=== PATIENT | female | born 1950 | race Caucasian/White ===

== ENCOUNTER 2022-04-05 12:45 | Inpatient (IN) | payer OTHER, MEDICAID ==
[~2022-04-05] VITALS: Ht 152.4 cm; Wt 59.9 kg
[2022-04-05 12:46] VITALS: BP_SYST 92
[2022-04-05 13:17] LABS: HEMATOCRIT 35.9 % (36-48); HEMOGLOBIN 12.3 g/dL (12.0-16.0); MEAN CORPUSCULAR HEMOGLOBIN 30 pg (27-31); MEAN CORPUSCULAR HGB CONC 34 % (32-36); MEAN CORPUSCULAR VOLUME 87 fL (79.0-98.0); PLATELET COUNT (AUTO) 129 K/uL (130-430); RED BLOOD CELL COUNT(AUTO) 4.14 MIL/uL (4.2-6.2); RED CELL DISTRIBUTION WIDTH 17.3 % (9.0-15.0); WHITE BLOOD COUNT (AUTO) 20.2 K/uL (4.8-10.8)
[2022-04-05 13:24] LABS: ANION GAP 7 (5-15); CALCIUM 8.3 mg/dL (8.4-11.0); CHLORIDE 93 mmol/L (98-107); CREATININE 1.24 mg/dL (0.55-1.30); GLUCOSE 189 mg/dL (70-99); POTASSIUM 3.2 mmol/L (3.5-5.1); SODIUM SERUM 127 mmol/L (136-145); UREA NITROGEN, BLOOD 19 mg/dL (8-21)
[2022-04-05 13:34] LABS: ALANINE AMINOTRANSFERASE 81 U/L (12-78); ALBUMIN 2.1 g/dL (3.4-4.8); ASPARTATE AMINOTRANSFERASE 106 U/L (10-37); TOTAL BILIRUBIN 6.5 mg/dL (0.0-1.0)
[2022-04-05 13:42] LABS: BAND % (MANUAL) 22 % (0-6); BASOPHILS % (MANUAL) 0 % (0-2); EOSINOPHILS % (MANUAL) 0 % (0-7); LYMPHOCYTES % (MANUAL) 2 % (20-46); MONOCYTES % (MANUAL) 2 % (0-11)
[2022-04-05] MEDS ORDERED: POTASSIUM CHLORIDE 20 MEQ TAB.PRT.SR PO ONE (15:45)
[2022-04-05] MEDS ORDERED: NACL 0.9% 1,000 ML IV ONE (15:45)
[2022-04-05] MEDS ORDERED: PIPERACILLIN/TAZO 3.375 GM in NS 50 ML IV ONE (15:45)
[2022-04-05] MEDS ORDERED: VANCOMYCIN HCL 1,000 MG in NS 250 ML IV ONE (16:00)
[2022-04-05] MEDS ORDERED: AZITHROMYCIN 500 MG in NS 250 ML IV ONE (16:00)
[2022-04-05] MEDS ORDERED: iohexoL 350 mgI/mL, 100 ML INFUS..BTL IV ONE (16:08)
[2022-04-05] MEDS ORDERED: AZITHROMYCIN 500 MG/VIAL (ZITHROMAX) IV ONE (16:25)
[2022-04-05] MEDS ORDERED: PIPERACILLIN/TAZOBACTAM 3.375 GM/VIAL (ZOSYN) IV ONE (16:26)
[2022-04-05] MEDS ORDERED: VANCOMYCIN HCL 1000 MG/VIAL IV ONE (16:27)
[2022-04-05] MEDS ORDERED: POTASSIUM CHLORIDE 20 MEQ TAB.PRT.SR ONE (17:55)
[2022-04-05] MEDS ORDERED: AMLO5TAB4 PO (19:28)
[2022-04-05] MEDS ORDERED: ALEN70TA27 PO (19:28)
[2022-04-05] MEDS ORDERED: RABE20TA18 PO (19:29)
[2022-04-05] MEDS ORDERED: DEPAK250 PO (19:29)
[2022-04-05] MEDS ORDERED: MEMA10TA56 PO (19:29)
[2022-04-05] MEDS ORDERED: ASPI-524 PO (19:29)
[2022-04-05] MEDS ORDERED: CELE-85 PO (19:29)
[2022-04-05] MEDS ORDERED: ATOR40TA68 PO (19:29)
[2022-04-05] MEDS ORDERED: METO-544 PO (19:29)
[2022-04-05] MEDS ORDERED: SYN50 PO (19:29)
[2022-04-05] MEDS ORDERED: CITA20TA16 PO (19:29)
[2022-04-05] MEDS ORDERED: SITA50TA3 PO (19:29)
[2022-04-05] MEDS: D5NS 1,000 ML IV SCH (20:16)
[2022-04-05] MEDS ORDERED: KETO5DRO85 EACH EYE (20:19)
[2022-04-05] MEDS ORDERED: PREDEYE1% EACH EYE (20:19)
[2022-04-05 20:51] VITALS: BP_SYST 140
[2022-04-06 00:30] VITALS: BP_SYST 132
[2022-04-06] MEDS: PIPERACILLIN/TAZO 3.375/DEX-IS 50 ML IV SCH ×5 (00:40→22:58)
[2022-04-06] MEDS: D5NS 1,000 ML IV SCH ×2 (06:46→14:01)
[2022-04-06] MEDS: LEVOTHYROXINE SODIUM 0.05 MG TABLET PO SCH (06:55)
[2022-04-06 07:13] LABS: ALANINE AMINOTRANSFERASE 100 U/L (12-78); ALBUMIN 1.8 g/dL (3.4-4.8); ANION GAP 7 (5-15); ASPARTATE AMINOTRANSFERASE 135 U/L (10-37); CALCIUM 8.1 mg/dL (8.4-11.0); CHLORIDE 97 mmol/L (98-107); CREATININE 0.92 mg/dL (0.55-1.30); GLUCOSE 275 mg/dL (70-99); POTASSIUM 3.9 mmol/L (3.5-5.1); SODIUM SERUM 130 mmol/L (136-145); TOTAL BILIRUBIN 6.2 mg/dL (0.0-1.0); UREA NITROGEN, BLOOD 14 mg/dL (8-21)
[2022-04-06 07:54] VITALS: BP_SYST 131
[2022-04-06 08:10] LABS: LIPASE 3630 U/L (73-393)
[2022-04-06 08:15] LABS: BASOPHILS % (AUTO) 0.1 % (0.0-2.0); EOSINOPHILS % (AUTO) 0.1 % (0.0-4.0); HEMATOCRIT 35.7 % (36-48); HEMOGLOBIN 12.4 g/dL (12.0-16.0); LYMPHOCYTES # (AUTO) 0.5 K/uL (1.0-5.5); LYMPHOCYTES % (AUTO) 3.5 % (20.5-51.5); MEAN CORPUSCULAR HEMOGLOBIN 31 pg (27-31); MEAN CORPUSCULAR HGB CONC 35 % (32-36); MEAN CORPUSCULAR VOLUME 89 fL (79.0-98.0); MONOCYTES # (AUTO) 0.9 K/uL (0.0-1.0); MONOCYTES % (AUTO) 6.7 % (1.7-9.3); NEUTROPHILS # (AUTO) 12.4 K/uL (1.8-7.7); NEUTROPHILS % (AUTO) 89.6 % (40.0-70.0); PLATELET COUNT (AUTO) 103 K/uL (130-430); RED BLOOD CELL COUNT(AUTO) 4.01 MIL/uL (4.2-6.2); RED CELL DISTRIBUTION WIDTH 17.7 % (9.0-15.0); WHITE BLOOD COUNT (AUTO) 13.9 K/uL (4.8-10.8)
[2022-04-06 08:33] VITALS: BP_SYST 131
[2022-04-06] MEDS: ASPIRIN 81 MG TAB.CHEW PO SCH (09:00)
[2022-04-06] MEDS: VALPROIC ACID 250 MG CAPSULE (DEPAKENE) PO SCH ×2 (09:00→21:00)
[2022-04-06] MEDS: MEMANTINE HCL 5 MG TABLET PO SCH ×2 (09:00→22:55)
[2022-04-06] MEDS: amLODIPine BESYLATE 5 MG TABLET PO SCH (09:00)
[2022-04-06] MEDS: CELECOXIB 200 MG CAPSULE PO SCH (09:00)
[2022-04-06] MEDS: CITALOPRAM HYDROBROMIDE 20 MG TABLET PO SCH (09:00)
[2022-04-06 09:24] LABS: BILIRUBIN,URINE 2+ (NEGATIVE); BLOOD, URINE 2+ (NEGATIVE); CLARITY/URINE CLEAR (CLEAR); COLOR,URINE YELLOW (YELLOW); GLUCOSE,URINE 3+ (NEGATIVE); KETONES,URINE NEGATIVE (NEGATIVE); LEUKOCYTE ESTERASE ,URINE 1+ (NEGATIVE); NITRITE, URINE NEGATIVE (NEGATIVE); PROTEIN URINE 1+ (NEGATIVE); UROBILINOGEN,URINE 0.2 (0.2-1.0)
[2022-04-06 09:42] LABS: BACTERIA,URINE FEW /HPF (None Seen); MUCUS,URINE 1+ /LPF (None Seen); WBC,URINE 20-50 /HPF (0-3)
[2022-04-06] MEDS ORDERED: PANTOPRAZOLE SODIUM 40 MG TAB PO ONE (11:00)
[2022-04-06 12:00] VITALS: BP_SYST 130
[2022-04-06] MEDS: prednisoLONE 1% OPHTHALMIC SUSPN 5 ML OP SCH ×4 (13:59→21:00)
[2022-04-06] MEDS: EYE OP SCH ×3 (14:31→21:00)
[2022-04-06] MEDS: KETOROLAC TROMETHAMINE 0.5% OP SCH ×3 (14:31→21:00)
[2022-04-06 16:41] VITALS: BP_SYST 144
[2022-04-06 22:36] VITALS: BP_SYST 159
[2022-04-06] MEDS: ATORVASTATIN 20 MG TABLET PO SCH (22:55)
[2022-04-06] MEDS: METOPROLOL SUCCINATE 50 MG TAB.SR.24H (TOPROL XL) PO SCH (22:57)
[2022-04-07 00:18] VITALS: BP_SYST 140
[2022-04-07 04:00] VITALS: BP_SYST 153
[2022-04-07] MEDS: LEVOTHYROXINE SODIUM 0.05 MG TABLET PO SCH (06:31)
[2022-04-07] MEDS: D5NS 1,000 ML IV SCH ×3 (06:31→17:53)
[2022-04-07] MEDS: PIPERACILLIN/TAZO 3.375/DEX-IS 50 ML IV SCH ×3 (06:31→17:14)
[2022-04-07 06:36] LABS: BASOPHILS # (AUTO) 0.1 K/uL (0.0-0.2); BASOPHILS % (AUTO) 0.6 % (0.0-2.0); EOSINOPHILS # (AUTO) 0.2 K/uL (0.0-0.4); EOSINOPHILS % (AUTO) 1.7 % (0.0-4.0); HEMATOCRIT 32.6 % (36-48); HEMOGLOBIN 11.5 g/dL (12.0-16.0); LYMPHOCYTES # (AUTO) 0.6 K/uL (1.0-5.5); MEAN CORPUSCULAR HEMOGLOBIN 31 pg (27-31); MEAN CORPUSCULAR HGB CONC 35 % (32-36); MEAN CORPUSCULAR VOLUME 88 fL (79.0-98.0); MONOCYTES # (AUTO) 0.9 K/uL (0.0-1.0); MONOCYTES % (AUTO) 7.1 % (1.7-9.3); NEUTROPHILS # (AUTO) 10.8 K/uL (1.8-7.7); NEUTROPHILS % (AUTO) 85.6 % (40.0-70.0); PLATELET COUNT (AUTO) 157 K/uL (130-430); RED BLOOD CELL COUNT(AUTO) 3.69 MIL/uL (4.2-6.2); RED CELL DISTRIBUTION WIDTH 17.5 % (9.0-15.0); WHITE BLOOD COUNT (AUTO) 12.6 K/uL (4.8-10.8)
[2022-04-07 07:56] LABS: ALANINE AMINOTRANSFERASE 93 U/L (12-78); ALBUMIN 1.6 g/dL (3.4-4.8); ANION GAP 7 (5-15); ASPARTATE AMINOTRANSFERASE 109 U/L (10-37); CALCIUM 7.7 mg/dL (8.4-11.0); CHLORIDE 103 mmol/L (98-107); CREATININE 0.49 mg/dL (0.55-1.30); GLUCOSE 231 mg/dL (70-99); LIPASE 1157 U/L (73-393); POTASSIUM 3.4 mmol/L (3.5-5.1); SODIUM SERUM 134 mmol/L (136-145); TOTAL BILIRUBIN 6.8 mg/dL (0.0-1.0); UREA NITROGEN, BLOOD 9 mg/dL (8-21)
[2022-04-07 08:00] VITALS: BP_SYST 149
[2022-04-07] MEDS: CELECOXIB 200 MG CAPSULE PO SCH (09:01)
[2022-04-07] MEDS: ASPIRIN 81 MG TAB.CHEW PO SCH (09:01)
[2022-04-07] MEDS: CITALOPRAM HYDROBROMIDE 20 MG TABLET PO SCH (09:01)
[2022-04-07] MEDS: METOPROLOL SUCCINATE 50 MG TAB.SR.24H (TOPROL XL) PO SCH ×2 (09:02→21:58)
[2022-04-07] MEDS: PANTOPRAZOLE SODIUM 40 MG TAB PO SCH (09:02)
[2022-04-07] MEDS: amLODIPine BESYLATE 5 MG TABLET PO SCH (09:03)
[2022-04-07] MEDS: MEMANTINE HCL 5 MG TABLET PO SCH ×2 (09:03→21:54)
[2022-04-07] MEDS: VALPROIC ACID 250 MG CAPSULE (DEPAKENE) PO SCH ×2 (09:04→21:54)
[2022-04-07] MEDS: EYE OP SCH ×4 (09:07→22:08)
[2022-04-07] MEDS: KETOROLAC TROMETHAMINE 0.5% OP SCH ×4 (09:07→22:08)
[2022-04-07] MEDS: prednisoLONE 1% OPHTHALMIC SUSPN 5 ML OP SCH ×4 (09:07→22:07)
[2022-04-07] MEDS ORDERED: POTASSIUM CHLORIDE 20 MEQ TAB.PRT.SR PO ONE (10:15)
[2022-04-07] MEDS ORDERED: DEXTROSE 50% JECT 50 ML DISP.SYRIN IVP PRN (10:30)
[2022-04-07] MEDS: INSULIN REGULAR, HUMAN 100 UNITS/ML, 10 ML VIAL (humuLIN R) SUBCUT PRN ×3 (12:04→21:59)
[2022-04-07 12:22] VITALS: BP_SYST 142
[2022-04-07] MEDS ORDERED: VANCOMYCIN HCL 1 GM/NS PREMIX 250 ML IV ONE (15:15)
[2022-04-07 16:11] VITALS: BP_SYST 141
[2022-04-07 20:00] VITALS: BP_SYST 132
[2022-04-07] MEDS: ATORVASTATIN 20 MG TABLET PO SCH (21:54)
[2022-04-08 00:06] VITALS: BP_SYST 129
[2022-04-08] MEDS: PIPERACILLIN/TAZO 3.375/DEX-IS 50 ML IV SCH ×5 (00:17→23:24)
[2022-04-08] MEDS: LEVOTHYROXINE SODIUM 0.05 MG TABLET PO SCH (06:14)
[2022-04-08] MEDS: D5NS 1,000 ML IV SCH (06:18)
[2022-04-08] MEDS: ALENDRONATE SODIUM 10 MG TABLET PO SCH (06:18)
[2022-04-08] MEDS: INSULIN REGULAR, HUMAN 100 UNITS/ML, 10 ML VIAL (humuLIN R) SUBCUT PRN ×4 (06:33→20:28)
[2022-04-08 07:28] LABS: BASOPHILS % (AUTO) 0.5 % (0.0-2.0); EOSINOPHILS # (AUTO) 0.1 K/uL (0.0-0.4); EOSINOPHILS % (AUTO) 1.1 % (0.0-4.0); HEMATOCRIT 32.6 % (36-48); HEMOGLOBIN 11.4 g/dL (12.0-16.0); LYMPHOCYTES # (AUTO) 1.6 K/uL (1.0-5.5); LYMPHOCYTES % (AUTO) 22.1 % (20.5-51.5); MEAN CORPUSCULAR HEMOGLOBIN 30 pg (27-31); MEAN CORPUSCULAR HGB CONC 35 % (32-36); MEAN CORPUSCULAR VOLUME 87 fL (79.0-98.0); MONOCYTES # (AUTO) 0.7 K/uL (0.0-1.0); MONOCYTES % (AUTO) 9.2 % (1.7-9.3); NEUTROPHILS # (AUTO) 4.9 K/uL (1.8-7.7); NEUTROPHILS % (AUTO) 67.1 % (40.0-70.0); PLATELET COUNT (AUTO) 131 K/uL (130-430); RED BLOOD CELL COUNT(AUTO) 3.74 MIL/uL (4.2-6.2); RED CELL DISTRIBUTION WIDTH 17.6 % (9.0-15.0); WHITE BLOOD COUNT (AUTO) 7.3 K/uL (4.8-10.8)
[2022-04-08 08:00] VITALS: BP_SYST 137
[2022-04-08 08:32] LABS: ALANINE AMINOTRANSFERASE 64 U/L (12-78); ALBUMIN 1.3 g/dL (3.4-4.8); ANION GAP 7 (5-15); CHLORIDE 107 mmol/L (98-107); CREATININE 0.58 mg/dL (0.55-1.30); GLUCOSE 195 mg/dL (70-99); SODIUM SERUM 139 mmol/L (136-145); TOTAL BILIRUBIN 2.7 mg/dL (0.0-1.0); UREA NITROGEN, BLOOD 12 mg/dL (8-21)
[2022-04-08] MEDS: PANTOPRAZOLE SODIUM 40 MG TAB PO SCH (09:37)
[2022-04-08] MEDS: CITALOPRAM HYDROBROMIDE 20 MG TABLET PO SCH (09:37)
[2022-04-08] MEDS: CELECOXIB 200 MG CAPSULE PO SCH (09:37)
[2022-04-08] MEDS: MEMANTINE HCL 5 MG TABLET PO SCH ×2 (09:37→20:08)
[2022-04-08] MEDS: amLODIPine BESYLATE 5 MG TABLET PO SCH (09:38)
[2022-04-08] MEDS: VALPROIC ACID 250 MG CAPSULE (DEPAKENE) PO SCH ×2 (09:38→20:06)
[2022-04-08] MEDS: ASPIRIN 81 MG TAB.CHEW PO SCH (09:38)
[2022-04-08] MEDS: METOPROLOL SUCCINATE 50 MG TAB.SR.24H (TOPROL XL) PO SCH ×2 (09:39→20:08)
[2022-04-08] MEDS: KETOROLAC TROMETHAMINE 0.5% OP SCH ×4 (09:43→20:09)
[2022-04-08] MEDS: prednisoLONE 1% OPHTHALMIC SUSPN 5 ML OP SCH ×4 (09:43→20:10)
[2022-04-08] MEDS: EYE OP SCH ×4 (09:43→20:09)
[2022-04-08 09:46] LABS: CALCIUM 8.2 mg/dL (8.4-11.0)
[2022-04-08 10:00] LABS: ASPARTATE AMINOTRANSFERASE 48 U/L (10-37); LIPASE 405 U/L (73-393)
[2022-04-08] MEDS ORDERED: POTASSIUM CHLORIDE 20 MEQ TAB.PRT.SR PO ONE (10:00)
[2022-04-08 10:55] VITALS: BP_SYST 135
[2022-04-08] MEDS: D5LR 1,000 ML IV SCH ×2 (11:12→20:17)
[2022-04-08 15:15] VITALS: BP_SYST 129
[2022-04-08] MEDS: POTASSIUM CHLORIDE 20 MEQ TAB.PRT.SR PO SCH ×2 (17:44→20:08)
[2022-04-08 20:00] VITALS: BP_SYST 134
[2022-04-08] MEDS: ATORVASTATIN 20 MG TABLET PO SCH (20:06)
[2022-04-09 00:20] VITALS: BP_SYST 144
[2022-04-09] MEDS: PIPERACILLIN/TAZO 3.375/DEX-IS 50 ML IV SCH ×3 (04:50→19:08)
[2022-04-09] MEDS: ALENDRONATE SODIUM 10 MG TABLET PO SCH (04:51)
[2022-04-09] MEDS: LEVOTHYROXINE SODIUM 0.05 MG TABLET PO SCH (04:52)
[2022-04-09] MEDS: D5LR 1,000 ML IV SCH ×2 (05:09→16:00)
[2022-04-09] MEDS ORDERED: INDOMETHACIN 50 MG SUPP.RECT RC ONE (07:30)
[2022-04-09 08:00] VITALS: BP_SYST 145
[2022-04-09 08:26] LABS: ALANINE AMINOTRANSFERASE 50 U/L (12-78); ALBUMIN 1.3 g/dL (3.4-4.8); ANION GAP 6 (5-15); ASPARTATE AMINOTRANSFERASE 30 U/L (10-37); CHLORIDE 101 mmol/L (98-107); CREATININE 0.62 mg/dL (0.55-1.30); GLUCOSE 231 mg/dL (70-99); LIPASE 460 U/L (73-393); POTASSIUM 3.2 mmol/L (3.5-5.1); SODIUM SERUM 133 mmol/L (136-145); TOTAL BILIRUBIN 2.4 mg/dL (0.0-1.0); UREA NITROGEN, BLOOD 9 mg/dL (8-21)
[2022-04-09] MEDS: CITALOPRAM HYDROBROMIDE 20 MG TABLET PO SCH (10:07)
[2022-04-09] MEDS: CELECOXIB 200 MG CAPSULE PO SCH (10:08)
[2022-04-09] MEDS: MEMANTINE HCL 5 MG TABLET PO SCH ×2 (10:08→21:26)
[2022-04-09] MEDS: POTASSIUM CHLORIDE 20 MEQ TAB.PRT.SR PO SCH ×3 (10:08→21:29)
[2022-04-09] MEDS: METOPROLOL SUCCINATE 50 MG TAB.SR.24H (TOPROL XL) PO SCH ×2 (10:09→21:27)
[2022-04-09] MEDS: PANTOPRAZOLE SODIUM 40 MG TAB PO SCH (10:09)
[2022-04-09] MEDS: amLODIPine BESYLATE 5 MG TABLET PO SCH (10:10)
[2022-04-09] MEDS: ASPIRIN 81 MG TAB.CHEW PO SCH (10:11)
[2022-04-09] MEDS: prednisoLONE 1% OPHTHALMIC SUSPN 5 ML OP SCH ×4 (10:12→21:43)
[2022-04-09 12:00] VITALS: BP_SYST 140
[2022-04-09 12:38] LABS: HEMATOCRIT 32.9 % (36-48); HEMOGLOBIN 11.1 g/dL (12.0-16.0); MEAN CORPUSCULAR HEMOGLOBIN 30 pg (27-31); MEAN CORPUSCULAR HGB CONC 34 % (32-36); MEAN CORPUSCULAR VOLUME 87 fL (79.0-98.0); PLATELET COUNT (AUTO) 151 K/uL (130-430); RED BLOOD CELL COUNT(AUTO) 3.77 MIL/uL (4.2-6.2); RED CELL DISTRIBUTION WIDTH 17.2 % (9.0-15.0); WHITE BLOOD COUNT (AUTO) 7.4 K/uL (4.8-10.8)
[2022-04-09] MEDS: EYE OP SCH ×4 (13:00→21:42)
[2022-04-09] MEDS: KETOROLAC TROMETHAMINE 0.5% OP SCH ×4 (13:00→21:42)
[2022-04-09] MEDS: INSULIN REGULAR, HUMAN 100 UNITS/ML, 10 ML VIAL (humuLIN R) SUBCUT PRN ×3 (13:22→21:13)
[2022-04-09] MEDS: VALPROIC ACID 250 MG CAPSULE (DEPAKENE) PO SCH ×2 (13:48→21:28)
[2022-04-09 13:54] LABS: BAND % (MANUAL) 0 % (0-6); BASOPHILS % (MANUAL) 0 % (0-2); EOSINOPHILS % (MANUAL) 2 % (0-7); LYMPHOCYTES % (MANUAL) 25 % (20-46); METAMYELOCYTES % 1 % (0-0); MONOCYTES % (MANUAL) 11 % (0-11)
[2022-04-09 16:00] VITALS: BP_SYST 140
[2022-04-09 20:00] VITALS: BP_SYST 124
[2022-04-09] MEDS: ATORVASTATIN 20 MG TABLET PO SCH (21:27)
[2022-04-09 22:16] VITALS: BP_SYST 124
== END 2022-04-09 23:04 | disposition short-term general hospital (02) | DRG 871 ==
LOC: SED 12:45 → STU 17:12
PROVIDERS: ADMIT Internal Medicine; ATTEND Internal Medicine
DX: A41.9 Sepsis, unspecified organism (principal); E43 Unspecified severe protein-calorie malnutrition; G93.41 Metabolic encephalopathy; K85.10 Biliary acute pancreatitis without necrosis or infection; E87.2 Acidosis; N39.0 Urinary tract infection, site not specified; M48.54XA Collapsed vertebra, not elsewhere classified, thoracic region, initial encounter for fracture; M48.56XA Collapsed vertebra, not elsewhere classified, lumbar region, initial encounter for fracture; E87.1 Hypo-osmolality and hyponatremia; K80.43 Calculus of bile duct with acute cholecystitis with obstruction; Z20.822 Contact with and (suspected) exposure to COVID-19; F03.90 Unspecified dementia, unspecified severity, without behavioral disturbance, psychotic disturbance, mood disturbance, and anxiety; I10 Essential (primary) hypertension; E11.9 Type 2 diabetes mellitus without complications; M81.0 Age-related osteoporosis without current pathological fracture; Z88.1 Allergy status to other antibiotic agents; Z88.5 Allergy status to narcotic agent; Z88.8 Allergy status to other drugs, medicaments and biological substances; Z86.73 Personal history of transient ischemic attack (TIA), and cerebral infarction without residual deficits; Z87.891 Personal history of nicotine dependence; Z68.25 Body mass index [BMI] 25.0-25.9, adult
CPT/HCPCS: 36415; 70450-TC; 70496; 70498; 71045; 71250-TC; 76376; 76705; 80048; 80053; 81000; 82962; 83605; 83690; 84484; 85007; 85025; 85027; 87040; 87186-TC; 92610-GN; 93005; 96365; 96366; 96367; 96368; 99285; G0378; J0456; J1815; J2543; J3370; Q9967